=== PATIENT | female | born 1965 | race Two or more races ===

== ENCOUNTER 2022-05-08 16:04 | Emergency (ER) | payer BC, OTHER ==
[~2022-05-08] VITALS: Ht 160 cm; Wt 76.7 kg
[2022-05-08 16:35] VITALS: BP 166/70
[2022-05-08] MEDS ORDERED: MET25T PO (16:45)
[2022-05-08] MEDS ORDERED: METOPROLOL TARTRATE 50 MG TAB PO ONE (16:45)
== END 2022-05-08 16:55 | disposition home or self-care (01) ==
LOC: ER 16:06
DX: I10 Essential (primary) hypertension (principal); F32.9 Major depressive disorder, single episode, unspecified; Z76.0 Encounter for issue of repeat prescription; Z88.5 Allergy status to narcotic agent